=== PATIENT | female | born 1955 | race Caucasian/White ===

== ENCOUNTER 2017-02-07 09:31 | Emergency (ER) | payer OTHER ==
[~2017-02-07] VITALS: Ht 160 cm; Wt 79.5 kg
[2017-02-07 09:34] VITALS: Ht 160 cm; Wt 79.5 kg
[2017-02-07 10:47] LABS: ADD UMIC YES; UR ASCORBIC ACID 20 mg/dL (NEGATIVE); UR BACTERIA FEW /HPF (NONE SEEN); UR BILIRUBIN (Dip) NEGATIVE (NEGATIVE); UR BLOOD (Dip) NEGATIVE (NEGATIVE); UR CLARITY CLEAR (CLEAR); UR COLOR YELLOW (YELLOW); UR GLUCOSE (Dip) NEGATIVE (NEGATIVE); UR KETONES (Dip) NEGATIVE (NEGATIVE); UR LEUKOCYTE ESTERASE (Dip) 1+ Leu/ul (NEGATIVE); UR NITRITE (Dip) NEGATIVE (NEGATIVE); UR RBC 1 /HPF (0-5); UR SPECIFIC GRAVITY (Dip) 1.015 (1.003-1.030); UR TOTAL PROTEIN (Dip) NEGATIVE (NEGATIVE); UR UROBILINOGEN (Dip) NEGATIVE (NEGATIVE)
--- NOTE | 2017-02-07 10:51 | RADRPT ---
PROCEDURE: Renal US. CLINICAL INDICATION: Flank pain and hematuria. TECHNIQUE: Multiple sonographic images of the kidneys and bladder were obtained. The images were reviewed on a PACS workstation. COMPARISON: No prior studies are available for comparison. FINDINGS: The kidneys are well visualized. The right kidney measures 10.9 cm. The left kidney measures 11.7 cm. There are no focal areas of abnormal echogenicity. There is no evidence for obstructive uropathy . The bladder is nondistended, limiting evaluation IMPRESSION: 1. Unremarkable renal ultrasound. RPTAT: HSM .Rama Quan MD, MD Date Time Electronically viewed and signed by .Rama Quan MD, MD on 02/07/2017 10:51 .M/
[2017-02-07] MEDS ORDERED: CIPR500T4 PO (11:08)
[2017-02-07 11:21] VITALS: BP 155/79; PULSE 72
--- NOTE | 2017-02-07 11:34 | ERD ---
ER Documentation Chief Complaint Chief Complaint PAINFUL URINATION , BLOOD IN URINE X 1 WEEK HPI 61-year-old female is complaining of painful urination and blood in the urine intermittently 1 week. She also has right flank pain for the last week. Patient reports remote history of kidney stones, about 20 years ago. Denies fever or chills. Denies abdominal pain, nausea, vomiting, or diarrhea. ROS All systems reviewed and are negative except as per history of present illness. 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 Reported Medications [None] No Conflict Check 03/20/14 Allergies Allergies: Coded Allergies: No Known Allergy (Unverified , 11/21/13) PMhx/Soc Medical and Surgical Hx: pt denies Medical Hx, pt denies Surgical Hx History of Surgery: No Anesthesia Reaction: No Hx Neurological Disorder: No Hx Respiratory Disorders: No Hx Cardiac Disorders: No Hx Psychiatric Problems: No Hx Miscellaneous Medical Probl: No Hx Alcohol Use: No Hx Substance Use: No Hx Tobacco Use: No Smoking Status: Never smoker Physical Exam Vitals Vital Signs Date Time Temp Pulse Resp B/P Pulse Ox O2 Delivery O2 Flow Rate FiO2 02/07/17 11:21 72 155/79 02/07/17 09:34 98.8 90 18 170/89 98 Physical Exam General: Well-developed, well-nourished, conscious and coherent, in no distress Skin: Warm and dry without rash, good texture and turgor Head: Normocephalic without evidence of trauma Eyes: Sclera and conjunctivae normal; pupils equal, round, and reactive to light; extraocular movements are intact Chest: Normal AP diameter. Good expansion without retractions. Nontender. Lungs are clear to auscultate bilaterally with good tidal volume Heart: Regular rate and rhythm. No murmur, rub, or gallops heard Abdomen: Soft and nontender without masses, guarding, or rebound. Bowel sounds are active. No hepatosplenomegaly Back: Left CVA tenderness, without spinal tenderness Pelvis: Suprapubic tenderness to palpation Extremities: Full range of motion. Good strength bilaterally. No clubbing, cyanosis, or edema. Peripheral pulses are intact. Sensation intact Neuro: Alert and oriented 4, GCS 15. Cranial nerves grossly intact. Motor and sensory exams nonfocal. Moves all extremities. Speech clear. Gait normal Results 24 hrs Laboratory Tests Test 02/07/17 10:15 Urine Color YELLOW Urine Clarity CLEAR Urine pH 7.0 Urine Specific [place] 1.015 Urine Ketones NEGATIVEmg/dL Urine Nitrite NEGATIVEmg/dL Urine Bilirubin NEGATIVEmg/dL Urine Urobilinogen NEGATIVEmg/dL Urine Leukocyte Esterase 1+Nohelia/ul Urine Microscopic RBC 1/HPF Urine Microscopic WBC 10/HPF Urine Bacteria FEW/HPF Urine Hemoglobin NEGATIVEmg/dL Urine Glucose NEGATIVEmg/dL Urine Total Protein NEGATIVEmg/dl PROCEDURE: Renal US. CLINICAL INDICATION: Flank pain and hematuria. TECHNIQUE: Multiple sonographic images of the kidneys and bladder were obtained. The images were reviewed on a PACS workstation. COMPARISON: No prior studies are available for comparison. FINDINGS: The kidneys are well visualized. The right kidney measures 10.9 cm. The left kidney measures 11.7 cm. There are no focal areas of abnormal echogenicity. There is no evidence for obstructive uropathy. The bladder is nondistended, limiting evaluation IMPRESSION: 1. Unremarkable renal ultrasound. RPTAT: HSM .Rama Quan MD, MD Date Time Electronically viewed and signed by .Rama Quan MD, MD on 02/07/2017 10:51 .M/ CC: TAL POLLOCK PROJECT RESERVOIR ENGINEER Procedures/MDM Well-appearing 61-year-old female presented ED with dysuria, hematuria, and flank pain. Renal ultrasound was unremarkable. UA has 1+ leukocyte, negative nitrite. Patient has right CVA tenderness, I have high concern for pyelonephritis. Patient appears well, stable for discharge and outpatient management. Medical decision making shared with patient and family. Education provided to patient and family. Patient and family expressed understanding of the plan. Medications on discharge: Cipro. Follow-up: Primary care provider in 2-3 days or return to ED if worse. Disclaimer: Inadvertent spelling and grammatical errors are likely due to EHR/ dictation software use and do not reflect on the overall quality of patient care. Also, please note that the electronic time recorded on this note does not necessarily reflect the actual time of the patient encounter. Departure Diagnosis: Primary Impression: Pyelonephritis Condition: Stable Patient Instructions: Pyelonephritis, Female (Adult) Referrals: [facility] YOU HAVE RECEIVED A MEDICAL SCREENING EXAM AND THE RESULTS INDICATE THAT YOU DO NOT HAVE A CONDITION THAT REQUIRES URGENT TREATMENT IN THE EMERGENCY DEPARTMENT. FURTHER EVALUATION AND TREATMENT OF YOUR CONDITION CAN WAIT UNTIL YOU ARE SEEN IN YOUR DOCTORS OFFICE WITHIN THE NEXT 1-2 DAYS. IT IS YOUR RESPONSIBILITY TO MAKE AN APPOINTMENT FOR FOLOW-UP CARE. IF YOU HAVE A PRIMARY DOCTOR --you should call your primary doctor and schedule an appointment IF YOU DO NOT HAVE A PRIMARY DOCTOR YOU CAN CALL OUR PHYSICIAN REFERRAL HOTLINE AT IF YOU CAN NOT AFFORD TO SEE A PHYSICIAN YOU CAN CHOSE FROM THE FOLLOWING [facility] [address] [facility] [facility] [address] [facility] [address] [facility] [address] [facility] [facility] [facility] [address] [facility] [facility] [address] [facility]. [facility]. [address] Additional Instructions: Call your primary care doctor TOMORROW for an appointment during the next 2-3 days.See the doctor sooner or return here if your condition worsens before your appointment time. TAL POLLOCK NP Feb 07, 2017 11:34
== END 2017-02-07 12:04 | disposition home or self-care (01) ==
LOC: FTE 09:31
DX: N20.0 Calculus of kidney (principal)
CPT/HCPCS: 76775; 81001; Z7502